=== PATIENT | male | born 1995 | race African-American/Black ===

== ENCOUNTER 2022-05-25 08:18 | Emergency (ER) | payer MEDICAID ==
[~2022-05-25] VITALS: Ht 182.9 cm; Wt 91.0 kg
[2022-05-25 08:41] VITALS: BP 117/65
[2022-05-25] MEDS ORDERED: HYDROCODONE/ACETAMINOPHEN 5/325MG TABLET PO ONE (11:00)
[2022-05-25] MEDS ORDERED: AMOXICILLIN/POTASSIUM CLAVULANATE 875/125MG TAB PO ONE (11:00)
== END 2022-05-25 11:43 | disposition home or self-care (01) ==
LOC: ER 08:18
DX: J36 Peritonsillar abscess (principal)
CPT/HCPCS: 99283